=== PATIENT | female | born 1985 | race Caucasian/White ===

== ENCOUNTER 2018-08-29 13:41 | Outpatient (CLI) | payer BC ==
--- NOTE | 2018-08-29 15:26 | ULT ---
EXAM: COMPLETE ULTRASOUND GREATER THAN 14 WEEKS: 08/29/18 HISTORY: Anatomy, size and dates. Single viable intrauterine fetus is noted in cephalic presentation. Cervical length approximates 3.2 cm. The placenta is posterior. heart rate 150 beats per minute. Amniotic fluid is within carlos l limits. ANATOMY: Visualized brain, four chamber heart, three vessel cord, stomach, bladder, kidneys, spine, and extremity regions are unremarkable. BIOMETRY: BPD 4.3 cm - - 19 weeks, 1 day Head circumference 16.7 cm - - 19 weeks, 3 days Abdominal circumference 14.3 cm - - 19 weeks, 5 days Femur length 3.2 cm - - 19 weeks, 6 days IMPRESSION: Gestational age average 19 weeks, 4 days. TG 01/19/19. Estimated weight 306 grams. POS: RRE
== END 2018-08-29 13:42 | disposition home or self-care (01) ==
LOC: BICULT 13:41
PROVIDERS: ATTEND Midwife
DX: Z34.02 Encounter for supervision of normal first pregnancy, second trimester (principal); Z3A.19 19 weeks gestation of pregnancy
CPT/HCPCS: 76805

== ENCOUNTER 2019-01-31 01:26 | Inpatient (IN) | payer BC ==
[2019-01-31 01:50] VITALS: BMI 28.3
[2019-01-31] MEDS: Lactated Ringer's 1,000 ML IV SCH ×3 (01:50→04:04)
[2019-01-31] MEDS ORDERED: hydrALAZINE 20 MG/ML VIAL SLOW IVP PRN ×2 (02:07→12:51)
[2019-01-31] MEDS ORDERED: Lidocaine 1% (PF) 30 ML VIAL SC PRN (02:07)
[2019-01-31] MEDS ORDERED: Promethazine HCl 25 MG/ML VIAL IM PRN (02:07)
[2019-01-31] MEDS ORDERED: Ibuprofen 800 MG TAB PO PRN (02:07)
[2019-01-31] MEDS ORDERED: Ondansetron PF 4 MG/2 ML Vial IVP PRN ×2 (02:07→12:51)
[2019-01-31] MEDS ORDERED: HYDROcodone/Acetaminophen 5/325 mg Tablet PO PRN ×3 (02:07→12:51)
[2019-01-31] MEDS ORDERED: Butorphanol Tartrate 1 MG/ML VIAL SLOW IVP PRN (02:07)
[2019-01-31] MEDS ORDERED: NS w/ Oxytocin 10 units 500 ML IV SCH (02:15)
[2019-01-31] MEDS ORDERED: Lactated Ringer's 1,000 ML IV SCH (02:15)
[2019-01-31] MEDS ORDERED: Fentanyl 4 mcg/Bup 0.1% Cadd 100 ML ONE (02:20)
[2019-01-31 02:28] LABS: Hemoglobin 13.4 g/dL (12.0-16.0); Mean Corpuscular HGB CONC 36.4 g/dL (32.0-36.0); Mean Corpuscular Volume 90.6 fL (78.0-98.0); Platelet Count 154 thou/uL (130-400); RBC Distribution Width 12.4 % (11.5-14.5); Red Blood Cell (RBC) Count 4.06 mill/uL (4.20-5.40)
[2019-01-31] MEDS ORDERED: Sodium Chloride 0.9% 20 ML ONE (02:44)
[2019-01-31 02:59] LABS: HBSAg Index 0.14 S/CO (0-0.99); HIV (1/2) Antibody/Antigen Non-Reactive (NonReactive); HIV 1/2 INDEX 0.07 S/CO (<1.00); Hep B Surf Ag Non-Reactive S/CO (NonReactive)
--- NOTE | 2019-01-31 04:14 | HP ---
TIME OF SERVICE: 214 REASON FOR ADMISSION: Contractions, active labor, postterm, desires epidural analgesia and delivery. HISTORY OF PRESENT ILLNESS: Ms. Pearce is a 33-year-old 4, para 2, AB 1, with an EDC of 01/19, placing her at 41-1/2 weeks' gestation. The patient has been at [facility] with contractions and labor all day. She was reported to have been persistently staying around 4 cm. The patient desired labor epidural. Upon presentation here and exam by RN, she was noted to be 7 cm with a reactive category 1 tracing. The patient is admitted for labor and for epidural. OBSTETRICAL AND GYNECOLOGICAL HISTORY: x2 of 09/10 and 09/08, 13 and 16 years ago. Blood type is O positive. Antibody negative. Pap negative. Rubella immune. VDRL/HIV first trimester nonreactive. Group B strep negative. Third trimester HIV not done. PAST MEDICAL HISTORY: Denies. PAST SURGICAL HISTORY: Denies. ALLERGIES: DENIES. MEDICATIONS: vitamins. SOCIAL HISTORY: Denies tobacco, alcohol or IV drug use FAMILY HISTORY: Noncontributory. REVIEW OF SYSTEMS: Noncontributory. PHYSICAL EXAMINATION: GENERAL: White female, complaining of contractions. VITAL SIGNS: Blood pressure 132/84, pulse 85, respirations 18, temperature 98.7. HEENT: Within normal limits. LUNGS: Clear to auscultation bilaterally. HEART: Regular rate and rhythm. ABDOMEN: Gravid. Estimated weight 8.5 pounds. FHT is 140s. Vulva without lesions. Vagina; discharge. Cervix by RN exam was 7, complete, and 0. EXTREMITIES: Without clubbing, cyanosis, or edema. IMPRESSION: Multiparous patient, in active labor, desiring labor epidural and delivery. PLAN: Admission, third trimester HIV, routine admit labs, labor epidural, anticipate spontaneous vaginal delivery. Job ID: [id number]
[2019-01-31 04:23] LABS: Syphilis Antibody Nonreactive (Nonreactive); Syphilis Antibody Index 0.03 S/CO (<1.00 Non-Reactive)
--- NOTE | 2019-01-31 06:29 | PRG ---
DATE OF SERVICE: 01/31/2019 TIME OF SERVICE: 0555. SUBJECTIVE: The patient is resting comfortably. She had SROM with clear fluid at approximately 1-1/2 hours ago. Nurse exam at that time said she was 7 cm. The patient's laboratory reveals white count of 25,000, hematocrit of 36.8%. She has been afebrile at Labor and Delivery with stable vital signs. heart tones are 120s to 130s. Positive excels, positive variable decelerations, category 1 heart rate tracing. Contractions are q.5 minutes. Exam by myself at this time reveals her to be 8, 90, with a swollen anterior cervical lip and +1 station, WINSTON presentation is suspected although ROP is not out of the question especially considering the patient's labor pattern. IMPRESSION: Slow progress to labor. The patient is [facility], is not on Pitocin augmentation. White count worrisome for impending chorioamnionitis. PLAN: Continue low intervention labor care. If fever develops, will initiate antibiotics for suspected chorioamnionitis, may consider initiation of Pitocin augmentation. We will plan on check out to Dr. Gilberto Joyner at 0800. Job ID: [id number]
[2019-01-31] MEDS ORDERED: Bupivacaine 0.5% 10 ML VIAL ONE (07:19)
[2019-01-31] MEDS ORDERED: Bupivacaine 0.25% 10 ML VIAL ONE (07:19)
--- NOTE | 2019-01-31 08:16 | PRG ---
DATE OF SERVICE: 01/31/2019 TIME OF SERVICE: 0750 hours. The patient was rechecked. She perhaps advanced her cervical dilatation just slightly to 8 to 9 and station to +1. Anterior cervical lip is swelling more. The baby seems to be right occiput transverse. Pelvis seems adequate. heart rate tracing is category I to category II. I discussed with the patient her options. Considering her contractions about every 5 minutes, they seem somewhat hypotonic. We will go ahead and initiate low-dose Pitocin augmentation. The patient understands risks and benefits of procedure as well as possible need for delivery if failure to progress. Temperature was 99.0. No overt signs of chorioamnionitis at this time. Job ID: [id number]
[2019-01-31] MEDS ORDERED: Carboprost 250 MCG/ML AMP ONE (08:29)
[2019-01-31] MEDS ORDERED: Misoprostol 200 MCG TAB ONE (08:30)
[2019-01-31] MEDS ORDERED: Methylergonovine 0.2 MG/ML VIAL ONE (08:37)
[2019-01-31] MEDS: NS / Oxytocin 40 units/1000ml 1,000 ML IV PRN ×2 (09:00→12:00)
[2019-01-31] MEDS ORDERED: FLU VACC QS2019-20(6MOS UP)/PF 60 MCG/0.5 ML SYRINGE IM ONE (09:00)
[2019-01-31] MEDS ORDERED: Milk Of Magnesia 30 ML UDCUP PO PRN (12:51)
[2019-01-31] MEDS ORDERED: Lanolin Ointment 7 GM TUBE TOP PRN (12:51)
[2019-01-31] MEDS ORDERED: Benzocaine-Menthol 82.5 ML CAN TOP PRN (12:51)
[2019-01-31] MEDS ORDERED: Bisacodyl 10 MG SUPP PR PRN (12:51)
[2019-01-31] MEDS ORDERED: NS / Oxytocin 40 units/1000ml 1,000 ML IV SCH (12:51)
[2019-01-31] MEDS: Ferrous Sulfate 325 MG TAB PO SCH (17:58)
[2019-01-31] MEDS: Ibuprofen 800 MG TAB PO PRN (22:32)
[2019-01-31] MEDS: Docusate Calcium (SURFAK) 240 MG CAP PO SCH (22:32)
[2019-02-01 06:07] LABS: #Basophils 0.1 thou/uL (0.0-0.2); #Eosinphils 0.3 thou/uL (0.0-0.7); #Lymphocytes 2.9 thou/uL (1.20-3.40); #Monocytes 0.8 thou/uL (0.11-0.59); %Basophils 0.4 % (0.0-1.0); %Eosinophils 1.5 % (0.0-10.0); %Lymphocytes 12.9 % (21.0-51.0); %Monocytes 3.8 % (0.0-10.0); %Neutrophils 81.4 % (42.0-75.0); Mean Corpuscular HGB CONC 33.8 g/dL (32.0-36.0); Mean Corpuscular Hemoglobin 31.6 pg (27.0-31.0); Mean Corpuscular Volume 93.5 fL (78.0-98.0); Platelet Count 131 thou/uL (130-400); RBC Distribution Width 12.6 % (11.5-14.5); White Blood Cell (WBC) Count 22.1 thou/uL (4.8-10.8)
[2019-02-01] MEDS: Ibuprofen 800 MG TAB PO PRN ×2 (06:27→17:12)
[2019-02-01] MEDS ORDERED: Adacel (T-DAP) 0.5 ML SYRINGE IM ONE (09:00)
--- NOTE | 2019-02-01 09:02 | DN ---
DATE OF PROCEDURE: 01/31/2019 The patient delivered a male on 01/31/2019 at 0855 hours, complicated by shoulder dystocia for 90 seconds, resolved by Awais' and suprapubic pressure bilaterally. Weight is 4475 g, Apgars were 5 and 9. Placenta delivered spontaneously followed by Pitocin infusion. There was a small labial laceration, that required repair for cosmetics. No other complications at time of . Once resuscitated shortly after delivery, baby had all extremities flexed and moving and hands clenched. Dr. Joyner is the delivering physician. Counts were correct. Mother and baby were stable in the room in the immediate . Job ID: [id number]
[2019-02-01] MEDS: Ferrous Sulfate 325 MG TAB PO SCH ×2 (09:35→18:16)
[2019-02-01] MEDS: Docusate Calcium (SURFAK) 240 MG CAP PO SCH (09:36)
[2019-02-01] MEDS: Prenatal Vitamin 1 TAB PO SCH (09:36)
--- NOTE | 2019-02-01 11:44 | DIS ---
DATE OF ADMISSION: 01/31/2019 DATE OF DISCHARGE: 02/01/2019 ADMITTING DIAGNOSES: 1. Intrauterine at 41 weeks and 4 days. 2. Active labor. 3. Desires pain control. DISCHARGE DIAGNOSIS: 1. Intrauterine at 41 weeks and 4 days. 2. Active labor. 3. Desires pain control. 4. Shoulder dystocia. HOSPITAL COURSE: The patient is a 33-year-old multiparous female, who was being managed by Luther Dubois at the [facility] and was no longer tolerating the pain well and was desiring an epidural, so came to the hospital for admission. Here, she continued to Labor on her own and delivered by spontaneous vaginal delivery complicated by shoulder dystocia relieved with Awais and suprapubic pressure. For complete details, please refer to her delivery note. Her course has been uncomplicated. She did have a white count on arrival of 25,000, but has never spiked a fever since and has otherwise felt fine. Today, she reports she is tolerating p.o., voiding on her own, having decreased lochia and good pain control. PHYSICAL EXAMINATION: VITAL SIGNS: Most recent vital signs; blood pressure is 98/55, temperature 97.7, pulse of 82, and respiratory rate 18. GENERAL: She appears to be in no acute distress. She is alert and oriented, cooperative and pleasant to interact with. HEENT: Head is normocephalic atraumatic. Fundus is firm and nontender. EXTREMITIES: Nontender. Nonedematous. LABORATORY DATA: white count is 22,000, down from 25,000; hemoglobin of 11; hematocrit 32.7; and platelets of 131,000. DISCHARGE INSTRUCTIONS: The patient is being discharged to home. She has instructions to follow up with Luther Dubois in the next few days to seek medical attention if she experiences fever, increasing pain, or bleeding. The patient will be discharged home with ibuprofen for pain control. Job ID: [id number]
[2019-02-02] MEDS: Docusate Calcium (SURFAK) 240 MG CAP PO SCH ×2 (01:50→08:49)
[2019-02-02] MEDS: Ibuprofen 800 MG TAB PO PRN (05:20)
[2019-02-02] MEDS: Ferrous Sulfate 325 MG TAB PO SCH (07:37)
[2019-02-02 08:34] VITALS: BP 105/63; TEMP 98.6
[2019-02-02] MEDS: Prenatal Vitamin 1 TAB PO SCH (08:49)
== END 2019-02-02 11:55 | disposition home or self-care (01) | DRG 807 ==
LOC: L&D/OP 01:26 → L&D 01:53 → 3SW 13:22
PROVIDERS: ADMIT Obstetrics & Gynecology; ATTEND Obstetrics & Gynecology
PROC: 10E0XZZ Delivery of Products of Conception, External Approach (ICD-10-PCS; principal; 2019-01-31)
PROC: 0UQMXZZ Repair Vulva, External Approach (ICD-10-PCS; 2019-01-31)
DX: O48.0 Post-term pregnancy (principal); Z37.0 Single live birth; O66.0 Obstructed labor due to shoulder dystocia; O70.0 First degree perineal laceration during delivery; Z88.0 Allergy status to penicillin; Z88.2 Allergy status to sulfonamides; Z3A.41 41 weeks gestation of pregnancy
CPT/HCPCS: 36415; 51702; 85025; 85027; 86780; 86850; 86900; 86901; 87340; 87389; 99285; J2210; J2590; J3490; S0020

== ENCOUNTER 2019-02-17 00:15 | Emergency (ER) | payer BC | END 2019-02-17 01:00 | disposition home or self-care (01) | LOC: ERS 00:15 | DX: O91.12 Abscess of breast associated with the puerperium (principal) | CPT/HCPCS: 99283 ==

== ENCOUNTER 2020-12-12 11:50 | Day surgery (SDC) | payer BC ==
[2020-12-11 15:12] VITALS: BMI 27.3
[2020-12-12] MEDS ORDERED: Levofloxacin 500 mg/D5W 100 ml Premix Bag ONE (13:39)
[2020-12-12] MEDS ORDERED: Clindamycin/D5W 900 mg/50 ml Premix Bag ONE (14:39)
[2020-12-12] MEDS ORDERED: Ropivacaine 0.5% HCl/PF (150 MG/30 ML VIAL) ONE (16:25)
[2020-12-12] MEDS ORDERED: Lidocaine 1% PF 5 ML VIAL ONE (16:25)
[2020-12-12] MEDS ORDERED: Bacitracin Zinc Ointment 30 gm TUBE ONE (17:39)
[2020-12-12] MEDS ORDERED: Bupivacaine PF 0.5% 30 ML VIAL ONE (17:39)
[2020-12-12] MEDS ORDERED: Betamet Acet/Betamet Na Ph 30 MG/5 ML VIAL ONE (17:39)
[2020-12-12] MEDS ORDERED: Dextrose 50% Abboject 50 ML SYRINGE ONE (17:48)
== END 2020-12-12 21:40 | disposition home or self-care (01) ==
LOC: SDC 11:50
PROVIDERS: ATTEND Orthopaedic Surgery Hand Surgery
PROC: 0LQ70ZZ Repair Right Hand Tendon, Open Approach (ICD-10-PCS; principal; 2020-12-12)
DX: O9A.213 Injury, poisoning and certain other consequences of external causes complicating pregnancy, third trimester (principal); S56.127A Laceration of flexor muscle, fascia and tendon of right little finger at forearm level, initial encounter; Z3A.31 31 weeks gestation of pregnancy; Z88.0 Allergy status to penicillin; Z88.2 Allergy status to sulfonamides; Z79.2 Long term (current) use of antibiotics; Z79.1 Long term (current) use of non-steroidal anti-inflammatories (NSAID); Z79.899 Other long term (current) drug therapy; Z98.890 Other specified postprocedural states; W26.0XXA Contact with knife, initial encounter; Y93.89 Activity, other specified
CPT/HCPCS: 36416; J0702; J1956; J2795; J3490; S0020